=== PATIENT | female | born 1980 | race Caucasian/White ===

== ENCOUNTER → 2018-01-26 11:34 | Outpatient (CLI) | payer OTHER, SELFPAY | PROVIDERS: Visit Provider Physician Assistant | DX: N39.0 Urinary tract infection, site not specified (principal) | CPT/HCPCS: 87086 ==

== ENCOUNTER 2024-10-29 13:00 | Outpatient (RCR) | payer OTHER, SELFPAY ==
--- NOTE | 2023-09-10 14:18 | PT.OPPOC ---
Physical, Occupational & Speech Therapy At [facility] Current Diagnoses Mixed incontinence (09/10/23) Cystocele, unspecified (09/10/23) Rectocele (09/10/23) Pelvic muscle wasting (09/10/23) Pelvic and perineal pain (09/10/23) Visit Care Team Role Provider Type ARIK Vides Family Provider Non-Staff Primary Care Provider Specialty: Nursing Address: [address], [address], [place], [address] Email: ARIK Currie Attending Provider Non-Staff Referring Provider Specialty: Nursing Address: [facility], [address], [place], [address] Email: Plan Of Care PT-OP-T Assessment and Plan Start: 09/10/23 09:47 Freq: Status: Active Protocol: Document 09/10/23 09:48 [facility] (Rec: 09/10/23 10:35 [facility] [id number]) Physical Therapy Assessment Rehab Potential Rehabilitation Potential Excellent Evaluation Complexity Number of Personal Factors/Comorbidities 0 Number of Body Systems Impaired 1-2 Clinical Presentation at Evaluation Stable Impairments Impairments Activity Tolerance,Functional Activities,Soft Tissue Mobility,Strength,Tone Other Impairments urinary stress incontinence Goals 3 Impairment Urinary stress incontinence that is occurring 4-5 times per day and Paige always wears a pad for protection Embedded Software Design Engineer Goal (LTG) Paige reports a overall reduction in urinary leakage and is no longer having to wear a daily maxi pad LTG Duration 12 weeks 2 Impairment Decreased pelvic floor endurance Short Term Goal (STG) Paige is able to sustain a pelvic floor contraction x 10 seconds in supine STG Duration 5 weeks Embedded Software Design Engineer Goal (LTG) Paige is able to sustain a pelvic floor contraction in standing x 5 seconds LTG Duration 12 weeks 1 Impairment Weakness of the pelvic floor with MMT of 1/5 for anterior and left lateral kohler and 2/5 for posterior and right lateral wall Short Term Goal (STG) Paige is educated on a pelvic floor strengthening program STG Duration 4 weeks Care Home Goal (LTG) Paige has improved MMT for pelvic floor muscle strength by at least 1 muscle grade LTG Duration 12 weeks Assessment Summary Assessment Paige is a 42 year old female who presents to PT today with chief complaints of urinary stress incontinence with strong cough/sneeze, exercise/ running or with unexpected activity. She notes she can't wear just her underwear without a pad as she never knows when she will leak. Bladder habits include 3 plus coffee's per day. She reports not drinking very much water per day but maybe 2-3 glasses of water. Paige was educated today on bladder irritants and how they can increase urinary leakage. Paige has a history of a C- section delivery 13 years ago followed by a 11 years ago. She reports tearing into the perineum with her delivery . Paige describes symptoms of a yeast infection that she gets regularly and she also describes a rash under her C section scar. With exam of the pelvic floor Paige is very weak. She tests 1/5 MMT for the anterior and left pelvic wall and 2/5 MMT for the posterior and right lateral wall. Her rectum is very full with stool but due to decreased sensation she is not aware of this. She was educated in splinting at the perineum for bowel movements as well as using a squatty potty to promote fully emptying her bowels. She was educated on how a full descending colon and rectum and add to urinary leakage. With exam there is both a cystocele and rectocele present grade 2 in supine. Paige is a good candidate for pelvic floor therapy for strength and endurance training, bladder retraining, and overall core stability. Physical Therapy Plan Frequency and Duration Frequency of Treatment 1x/Week Duration of treatment (weeks) 12 Plan of Care Start Date 09/10/23 Plan of Care End Date 12/03/23 Therapeutic Interventions Therapeutic Interventions Home Exercise Program, Neuromuscular Re-education, Self-Care/Home Management, Therapeutic Exercises Modalities Biofeedback Next Visit Focus/Plan Next Note Type Treatment Note Next Visit Plan Begin EMG biofeedback for pelvic floor muscle training next visit. Check in with how Paige did with splinting at the perineum and review bladder irritants Plan of Care Dates Plan of Care Start Date 09/10/23 Plan of Care End Date 12/03/23 Electronically Signed by: Ekta Mckeon, PT 09/12/23 [id number] If you are in agreement with this Plan of Care, please return a signed and dated copy. I have reviewed this Plan of Care and certify that the skilled therapy services above are required to meet the patient?s needs. Physician Signature Date Printed Name and Credentials Clinical Instructor Signature Printed Name and Credentials
--- NOTE | 2023-09-10 14:18 | PT.OIE ---
Current Diagnoses Mixed incontinence (09/10/23) Cystocele, unspecified (09/10/23) Rectocele (09/10/23) Pelvic muscle wasting (09/10/23) Pelvic and perineal pain (09/10/23) Visit Care Team Role Provider Type ARIK Vides Family Provider Non-Staff Primary Care Provider Specialty: Nursing Address: [address], [address], [place], [address] Email: ARIK Currie Attending Provider Non-Staff Referring Provider Specialty: Nursing Address: [facility], [address], [place], [address] Email: Physical Therapy Initial Evaluation PT-OP-A Visit Information Start: 09/10/23 09:47 Freq: Status: Active Protocol: Document 09/10/23 09:45 [facility] (Rec: 09/10/23 17:18 [facility] [id number]) Out-Patient Physical Therapy Visit Information Visit Information Visit Type Initial Evaluation Visit Start Time 09:45 Visit Stop Time 10:30 Visit Number 1 Evaluation Information Evaluation Date 09/10/23 PT-OP-B Current Condition Start: 09/10/23 09:47 Freq: Status: Active Protocol: Document 09/10/23 09:48 [facility] (Rec: 09/10/23 10:35 [facility] [id number]) Current Condition History of Current Condition Onset Date 6-7 years ago Current Complaints urinary stress incontinence History of Current Condition kids are 13 and 11 and it started 6-7 years ago with losing urine with a strong sneeze, 2.5 years ago she did a little pelvic floor PT but it did not work for her. SHe has a C section and then a and she tore badly with her second baby. She does feel that she gets rashes under her scar. She does describe bad cramps and chronic yeast infections. She gets these every 3-4 months. 1 UTI 3 years ago. She has mild leakage here and there but with sneezing she will feel it just flow. She has to wear a pad all the time. She feels she voids all the way. SHe is waking up 1 xm per night void. SHe has a lot of coffee throughout the day. LImits water. She does have occasional fecal soiling but she was on a medication for PCOS was causing diarhea. Treatment Goals Patient/Caregiver Goals pt wants to see how much she can do with strengthening to avoid surgery. PT-OP-C Subjective Start: 09/10/23 09:47 Freq: Status: Active Protocol: Document 09/10/23 09:45 [facility] (Rec: 09/12/23 13:58 [facility] [id number]) Patient Questionnaires Pelvic Pain and Urgency/Frequency Patient Symptom Scale Pelvic Pain Score 4 PT-OP-I Pelvic Floor Start: 09/10/23 09:47 Freq: Status: Active Protocol: Document 09/10/23 09:45 [facility] (Rec: 09/10/23 17:20 [facility] [id number]) Pelvic Floor Assessment Urine Pelvic Floor Surgery No Other Urinary Symptoms urinary stress incontinence Leakage Size Large Leakage Cause Cough,Exercise,Lifting,Sneeze Leaks Per Day 5 Nocturia 1 Pads Used In 24 Hours 3 Urine Pad Type Maxi Pad Pelvic Clock Pelvic Clock 12-3 Atrophy Pelvic Clock 3-6 Atrophy Pelvic Clock 6-9 Atrophy Pelvic Clock 9-12 Atrophy Prolapse Cystocele Grade 2 Urethrocele Grade 2 Contraction Ability Voluntary Contraction Weak Voluntary Relaxation Weak Manual Muscle Testing Left 2 Manual Muscle Testing Right 2 Manual Muscle Testing Anterior 1 Manual Muscle Testing Posterior 2 Muscle Endurance (Seconds) 3 Comments Pelvic Floor Comments with exam Paige presents with a large amount of stool in her rectum. She is not aware of the stool and we talked about how this can press into her bladder increasing incontinence symptoms PT-OP-M Strength Start: 09/10/23 09:47 Freq: Status: Active Protocol: Document 09/10/23 09:45 [facility] (Rec: 09/12/23 13:59 [facility] [id number]) Trunk Strength Trunk Manual Muscle Testing Flexion 3 Fair Core Stabilization Decreased TA activation in supine PT-OP-Q Treatments Start: 09/10/23 09:47 Freq: Status: Active Protocol: Document 09/10/23 09:48 [facility] (Rec: 09/10/23 10:35 [facility] [id number]) Self-Care/Home Management Treatment Education Other Education pt educated on bladder irritants as pt drinks several cups of coffee per day, educated on splinting at the perineum and using a squatty potty to assist with fully emptying the bowels PT-OP-T Assessment and Plan Start: 09/10/23 09:47 Freq: Status: Active Protocol: Document 09/10/23 09:48 [facility] (Rec: 09/10/23 10:35 [facility] [id number]) Physical Therapy Assessment Rehab Potential Rehabilitation Potential Excellent Evaluation Complexity Number of Personal Factors/Comorbidities 0 Number of Body Systems Impaired 1-2 Clinical Presentation at Evaluation Stable Impairments Impairments Activity Tolerance,Functional Activities,Soft Tissue Mobility,Strength,Tone Other Impairments urinary stress incontinence Goals 3 Impairment Urinary stress incontinence that is occuring 4-5 times per day and Paige always wears a pad for protection Ict Account Manager Goal (LTG) Paige reports a overall reduction in urinary leakage and is no longer having to wear a daily maxi pad LTG Duration 12 weeks 2 Impairment Decreased pelvic floor endurance Short Term Goal (STG) Paige is able to sustain a pelvic floor contraction x 10 seconds in supine STG Duration 5 weeks Ict Account Manager Goal (LTG) Paige is able to sustain a pelvic floor contraction in standing x 5 seconds LTG Duration 12 weeks 1 Impairment Weakness of the pelvic floor with MMT of 1/5 for anterior and left lateral kohler and 2/5 for posterior and right lateral wall Short Term Goal (STG) Paige is educated on a pelvic floor strengthening program STG Duration 4 weeks Half-Way Goal (LTG) Paige has improved MMT for pelvic floor muscle strength by at least 1 muscle grade LTG Duration 12 weeks Assessment Summary Assessment Paige is a 42 year old female who presents to PT today with chief complaints of urinary stress incontinence with strong cough/sneeze, exercise/ running or with unexpected activity. She notes she can't wear just her underwear without a pad as she never knows when she will leak. Bladder habits include 3 plus coffee's per day. She reports not drinking very much water per day but maybe 2-3 glasses of water. Paige was educated today on bladder irritants and how they can increase urinary leakge. Paige has a history of a C- section delivery 13 years ago followed by a 11 years ago. She reports tearing into the perineum with her delivery . Paige describes symptoms of a yeast infection that she gets regularly and she also describes a rash under her C section scar. With exam of the pelvic floor Paige is very weak. She tests 1/5 MMT for the anterior and left pelvic wall and 2/5 MMT for the posterior and right lateral wall. Her rectum is very full with stool but due to decreased sensation she is not aware of this. She was educated in splinting at the perineum for bowel movements as well as using a squatty potty to promote fully emptying her bowels. She was educated on how a full descending colon and rectum and add to urinary leakage. With exam there is both a cystocele and rectocele present grade 2 in supine. Paige is a good candidate for pelvic floor therapy for strength and endurance training, bladder retraining, and overall core stability. Physical Therapy Plan Frequency and Duration Frequency of Treatment 1x/Week Duration of treatment (weeks) 12 Plan of Care Start Date 09/10/23 Plan of Care End Date 12/03/23 Therapeutic Interventions Therapeutic Interventions Home Exercise Program, Neuromuscular Re-education, Self-Care/Home Management, Therapeutic Exercises Modalities Biofeedback Next Visit Focus/Plan Next Note Type Treatment Note Next Visit Plan Begin EMG biofeedback for pelvic floor muscle training next visit. Check in with how Paige did with splinting at the perineum and review bladder irritants
--- NOTE | 2023-10-03 16:18 | PT.OTN ---
Current Diagnoses Mixed incontinence (10/03/23) Cystocele, unspecified (10/03/23) Rectocele (10/03/23) Pelvic muscle wasting (10/03/23) Pelvic and perineal pain (10/03/23) Physical Therapy Treatment Note PT-OP-A Visit Information Start: 09/10/23 09:47 Freq: Status: Active Protocol: Document 10/03/23 09:46 [facility] (Rec: 10/03/23 10:14 [facility] [id number]) Out-Patient Physical Therapy Visit Information Visit Information Visit Type Treatment Note Visit Start Time 09:45 Visit Stop Time 10:30 Visit Number 2 PT-OP-B Current Condition Start: 09/10/23 09:47 Freq: Status: Active Protocol: Document 09/10/23 09:48 [facility] (Rec: 09/10/23 10:35 [facility] [id number]) Current Condition History of Current Condition Onset Date 6-7 years ago Current Complaints urinary stress incontinence History of Current Condition kids are 13 and 11 and it started 6-7 years ago with losing urine with a strong sneeze, 2.5 years ago she did a little pelvic floor PT but it did not work for her. SHe has a C section and then a and she tore badly with her second baby. She does feel that she gets rashes under her scar. She does describe bad cramps and chronic yeast infections. She gets these every 3-4 months. 1 UTI 3 years ago. She has mild leakage here and there but with sneezing she will feel it just flow. She has to wear a pad all the time. She feels she voids all the way. SHe is waking up 1 xm per night void. SHe has a lot of coffee throughout the day. LImits water. She does have occasional fecal soiling but she was on a medication for PCOS was causing diarhea. Treatment Goals Patient/Caregiver Goals pt wants to see how much she can do with strengthening to avoid surgery. PT-OP-C Subjective Start: 09/10/23 09:47 Freq: Status: Active Protocol: Document 10/03/23 09:46 [facility] (Rec: 10/03/23 10:14 [facility] [id number]) OP-PT Subjective Patient Comments Patient Comments pt notes she has been trying to cut back on coffee but she is feeling pretty sleep deprived she has been using a stool to help with bowel movements. She does note that at times she has really hard stool. PT-OP-I Pelvic Floor Start: 09/10/23 09:47 Freq: Status: Active Protocol: Document 09/10/23 09:45 [facility] (Rec: 09/10/23 17:20 [facility] [id number]) Pelvic Floor Assessment Urine Pelvic Floor Surgery No Other Urinary Symptoms urinary stress incontinence Leakage Size Large Leakage Cause Cough,Exercise,Lifting,Sneeze Leaks Per Day 5 Nocturia 1 Pads Used In 24 Hours 3 Urine Pad Type Maxi Pad Pelvic Clock Pelvic Clock 12-3 Atrophy Pelvic Clock 3-6 Atrophy Pelvic Clock 6-9 Atrophy Pelvic Clock 9-12 Atrophy Prolapse Cystocele Grade 2 Urethrocele Grade 2 Contraction Ability Voluntary Contraction Weak Voluntary Relaxation Weak Manual Muscle Testing Left 2 Manual Muscle Testing Right 2 Manual Muscle Testing Anterior 1 Manual Muscle Testing Posterior 2 Muscle Endurance (Seconds) 3 Comments Pelvic Floor Comments with exam Paige presents with a large amount of stool in her rectum. She is not aware of the stool and we talked about how this can press into her bladder increasing incontinence symptoms PT-OP-M Strength Start: 09/10/23 09:47 Freq: Status: Active Protocol: Document 09/10/23 09:45 [facility] (Rec: 09/12/23 13:59 [facility] [id number]) Trunk Strength Trunk Manual Muscle Testing Flexion 3 Fair Core Stabilization Decreased TA activation in supine PT-OP-Q Treatments Start: 09/10/23 09:47 Freq: Status: Active Protocol: Document 10/03/23 09:46 [facility] (Rec: 10/03/23 10:14 [facility] [id number]) Self-Care/Home Management Treatment Education Other Education review of coffee intake and water intake, review of perineal splinting and importance of having a daily bowel movement PT-OP-T Assessment and Plan Start: 09/10/23 09:47 Freq: Status: Active Protocol: Document 10/03/23 16:16 [facility] (Rec: 10/03/23 16:17 [facility] [id number]) Physical Therapy Assessment Assessment Summary Assessment Paige was started today on NMES for the pelvic floor, she could only feel the right posterior wall but did well with initiating a pelvic floor contraction with the NMES. She does have EMG biofeedback for home and I encouraged her to use this Physical Therapy Plan Frequency and Duration Frequency of Treatment 1x/Week Duration of treatment (weeks) 12 Plan of Care Start Date 09/10/23 Plan of Care End Date 12/03/23 Therapeutic Interventions Therapeutic Interventions Home Exercise Program, Neuromuscular Re-education, Self-Care/Home Management, Therapeutic Exercises Modalities Biofeedback Next Visit Focus/Plan Next Note Type Treatment Note Next Visit Plan assess how Paige did with the NMES, continue NMES and progress pelvic floor and TA stabilization
--- NOTE | 2023-10-09 13:08 | PT.OTN ---
Current Diagnoses Mixed incontinence (10/09/23) Cystocele, unspecified (10/09/23) Rectocele (10/09/23) Pelvic muscle wasting (10/09/23) Pelvic and perineal pain (10/09/23) Physical Therapy Treatment Note PT-OP-A Visit Information Start: 09/10/23 09:47 Freq: Status: Active Protocol: Document 10/09/23 09:02 [facility] (Rec: 10/09/23 09:47 [facility] [id number]) Out-Patient Physical Therapy Visit Information Visit Information Visit Type Treatment Note Visit Start Time 09:02 Visit Stop Time 09:45 Visit Number 3 PT-OP-B Current Condition Start: 09/10/23 09:47 Freq: Status: Active Protocol: Document 09/10/23 09:48 [facility] (Rec: 09/10/23 10:35 [facility] [id number]) Current Condition History of Current Condition Onset Date 6-7 years ago Current Complaints urinary stress incontinence History of Current Condition kids are 13 and 11 and it started 6-7 years ago with losing urine with a strong sneeze, 2.5 years ago she did a little pelvic floor PT but it did not work for her. SHe has a C section and then a and she tore badly with her second baby. She does feel that she gets rashes under her scar. She does describe bad cramps and chronic yeast infections. She gets these every 3-4 months. 1 UTI 3 years ago. She has mild leakage here and there but with sneezing she will feel it just flow. She has to wear a pad all the time. She feels she voids all the way. SHe is waking up 1 xm per night void. SHe has a lot of coffee throughout the day. LImits water. She does have occasional fecal soiling but she was on a medication for PCOS was causing diarhea. Treatment Goals Patient/Caregiver Goals pt wants to see how much she can do with strengthening to avoid surgery. PT-OP-C Subjective Start: 09/10/23 09:47 Freq: Status: Active Protocol: Document 10/09/23 09:02 [facility] (Rec: 10/09/23 09:47 [facility] [id number]) OP-PT Subjective Patient Comments Patient Comments Paige notes she was trying the exercises more at home and she would do it whereever she was when she had the time. She PT-OP-I Pelvic Floor Start: 09/10/23 09:47 Freq: Status: Active Protocol: Document 09/10/23 09:45 [facility] (Rec: 09/10/23 17:20 [facility] [id number]) Pelvic Floor Assessment Urine Pelvic Floor Surgery No Other Urinary Symptoms urinary stress incontinence Leakage Size Large Leakage Cause Cough,Exercise,Lifting,Sneeze Leaks Per Day 5 Nocturia 1 Pads Used In 24 Hours 3 Urine Pad Type Maxi Pad Pelvic Clock Pelvic Clock 12-3 Atrophy Pelvic Clock 3-6 Atrophy Pelvic Clock 6-9 Atrophy Pelvic Clock 9-12 Atrophy Prolapse Cystocele Grade 2 Urethrocele Grade 2 Contraction Ability Voluntary Contraction Weak Voluntary Relaxation Weak Manual Muscle Testing Left 2 Manual Muscle Testing Right 2 Manual Muscle Testing Anterior 1 Manual Muscle Testing Posterior 2 Muscle Endurance (Seconds) 3 Comments Pelvic Floor Comments with exam Paige presents with a large amount of stool in her rectum. She is not aware of the stool and we talked about how this can press into her bladder increasing incontinence symptoms PT-OP-M Strength Start: 09/10/23 09:47 Freq: Status: Active Protocol: Document 09/10/23 09:45 [facility] (Rec: 09/12/23 13:59 [facility] [id number]) Trunk Strength Trunk Manual Muscle Testing Flexion 3 Fair Core Stabilization Decreased TA activation in supine PT-OP-Q Treatments Start: 09/10/23 09:47 Freq: Status: Active Protocol: Document 10/09/23 09:02 [facility] (Rec: 10/09/23 09:47 [facility] [id number]) Therapeutic Exercises Supine Exercises modified squat stretch Reps/Minutes hold 1-2 min pelvic floor long holds Reps/Minutes x 10 reps holding 10 sec and relaxing 10 sec supine ball squeeze with pelvic floor Side bilateral Reps/Minutes x 10 Other Exercises cat cow Reps/Minutes x 10 reps Neuro Re-Education Treatment Other Activities NMES for the pelvic floor Details with vaginal sensor Comments 15 min 10 sec on 10 sec off she was able to feel more in the upper pelvic floor PT-OP-T Assessment and Plan Start: 09/10/23 09:47 Freq: Status: Active Protocol: Document 10/09/23 09:02 [facility] (Rec: 10/09/23 09:47 [facility] [id number]) Physical Therapy Assessment Goals 3 Impairment Urinary stress incontinence that is occuring 4-5 times per day and Paige always wears a pad for protection Equal Opportunity Officer Goal (LTG) Paige reports a overall reduction in urinary leakage and is no longer having to wear a daily maxi pad LTG Duration 12 weeks 2 Impairment Decreased pelvic floor endurance Short Term Goal (STG) Paige is able to sustain a pelvic floor contraction x 10 seconds in supine STG Duration 5 weeks Equal Opportunity Officer Goal (LTG) Paige is able to sustain a pelvic floor contraction in standing x 5 seconds LTG Duration 12 weeks 1 Impairment Weakness of the pelvic floor with MMT of 1/5 for anterior and left lateral kohler and 2/5 for posterior and right lateral wall Short Term Goal (STG) Paige is educated on a pelvic floor strengthening program STG Duration 4 weeks Equal Opportunity Officer Goal (LTG) Paige has improved MMT for pelvic floor muscle strength by at least 1 muscle grade LTG Duration 12 weeks Assessment Summary Assessment Paige could feel the NMES at a lower level today at level 7 and she feels more sensation. continue working on improved pelvic floor awarness Physical Therapy Plan Frequency and Duration Frequency of Treatment 1x/Week Duration of treatment (weeks) 12 Plan of Care Start Date 09/10/23 Plan of Care End Date 12/03/23 Therapeutic Interventions Therapeutic Interventions Home Exercise Program, Neuromuscular Re-education, Self-Care/Home Management, Therapeutic Exercises Modalities Biofeedback Next Visit Focus/Plan Next Visit Plan continue with nmes and core strengthening
--- NOTE | 2023-11-28 14:30 | PT.OTN ---
Current Diagnoses Mixed incontinence (11/28/23) Cystocele, unspecified (11/28/23) Rectocele (11/28/23) Pelvic muscle wasting (11/28/23) Pelvic and perineal pain (11/28/23) Physical Therapy Treatment Note PT-OP-A Visit Information Start: 09/10/23 09:47 Freq: Status: Active Protocol: Document 11/28/23 14:30 [facility] (Rec: 11/28/23 16:15 [facility] [id number]) Out-Patient Physical Therapy Visit Information Visit Information Visit Type Progress Note Visit Start Time 14:30 Visit Stop Time 15:15 Visit Number 4 Evaluation Information Evaluation Date 09/10/23 PT-OP-B Current Condition Start: 09/10/23 09:47 Freq: Status: Active Protocol: Document 09/10/23 09:48 [facility] (Rec: 09/10/23 10:35 [facility] [id number]) Current Condition History of Current Condition Onset Date 6-7 years ago Current Complaints urinary stress incontinence History of Current Condition kids are 13 and 11 and it started 6-7 years ago with losing urine with a strong sneeze, 2.5 years ago she did a little pelvic floor PT but it did not work for her. SHe has a C section and then a and she tore badly with her second baby. She does feel that she gets rashes under her scar. She does describe bad cramps and chronic yeast infections. She gets these every 3-4 months. 1 UTI 3 years ago. She has mild leakage here and there but with sneezing she will feel it just flow. She has to wear a pad all the time. She feels she voids all the way. SHe is waking up 1 xm per night void. SHe has a lot of coffee throughout the day. LImits water. She does have occasional fecal soiling but she was on a medication for PCOS was causing diarhea. Treatment Goals Patient/Caregiver Goals pt wants to see how much she can do with strengthening to avoid surgery. PT-OP-C Subjective Start: 09/10/23 09:47 Freq: Status: Active Protocol: Document 11/28/23 14:30 [facility] (Rec: 11/28/23 15:18 [facility] [id number]) OP-PT Subjective Patient Comments Patient Comments Paige notes she has been dealing with her autistic child and has not had time for her exercises. She has recently had to admit her son into childrens inpatient. She would like to work on her exercises and feels like she needs to start over with her PT program Patient Reported Progress Same PT-OP-I Pelvic Floor Start: 09/10/23 09:47 Freq: Status: Active Protocol: Document 09/10/23 09:45 [facility] (Rec: 09/10/23 17:20 [facility] [id number]) Pelvic Floor Assessment Urine Pelvic Floor Surgery No Other Urinary Symptoms urinary stress incontinence Leakage Size Large Leakage Cause Cough,Exercise,Lifting,Sneeze Leaks Per Day 5 Nocturia 1 Pads Used In 24 Hours 3 Urine Pad Type Maxi Pad Pelvic Clock Pelvic Clock 12-3 Atrophy Pelvic Clock 3-6 Atrophy Pelvic Clock 6-9 Atrophy Pelvic Clock 9-12 Atrophy Prolapse Cystocele Grade 2 Urethrocele Grade 2 Contraction Ability Voluntary Contraction Weak Voluntary Relaxation Weak Manual Muscle Testing Left 2 Manual Muscle Testing Right 2 Manual Muscle Testing Anterior 1 Manual Muscle Testing Posterior 2 Muscle Endurance (Seconds) 3 Comments Pelvic Floor Comments with exam Paige presents with a large amount of stool in her rectum. She is not aware of the stool and we talked about how this can press into her bladder increasing incontinence symptoms PT-OP-M Strength Start: 09/10/23 09:47 Freq: Status: Active Protocol: Document 09/10/23 09:45 [facility] (Rec: 09/12/23 13:59 [facility] [id number]) Trunk Strength Trunk Manual Muscle Testing Flexion 3 Fair Core Stabilization Decreased TA activation in supine PT-OP-Q Treatments Start: 09/10/23 09:47 Freq: Status: Active Protocol: Document 11/28/23 14:30 [facility] (Rec: 11/28/23 15:18 [facility] [id number]) Therapeutic Exercises Supine Exercises modified squat stretch Reps/Minutes hold 1-2 min pelvic floor long holds Reps/Minutes x 10 reps holding 10 sec and relaxing 10 sec Comments 4.4 8.9 max supine ball squeeze with pelvic floor Reps/Minutes x 10 reps holding 5 seconds and resting 10 seconds Comments max 9.5 Self-Care/Home Management Treatment Education Patient Education Home Exercise Program Other Education HEP was reviewed and new handouts were given to Paige today for home PT-OP-T Assessment and Plan Start: 09/10/23 09:47 Freq: Status: Active Protocol: Document 11/28/23 14:30 [facility] (Rec: 11/28/23 15:18 [facility] [id number]) Physical Therapy Assessment Goals 3 Impairment Urinary stress incontinence that is occuring 4-5 times per day and Paige always wears a pad for protection Insole Lip Turner Goal (LTG) Paige reports a overall reduction in urinary leakage and is no longer having to wear a daily maxi pad LTG Duration 12 weeks 2 Impairment Decreased pelvic floor endurance Short Term Goal (STG) Paige is able to sustain a pelvic floor contraction x 10 seconds in supine STG Duration 5 weeks Alf Goal (LTG) Paige is able to sustain a pelvic floor contraction in standing x 5 seconds LTG Duration 12 weeks 1 Impairment Weakness of the pelvic floor with MMT of 1/5 for anterior and left lateral kohlre and 2/5 for posterior and right lateral wall Short Term Goal (STG) Paige is educated on a pelvic floor strengthening program STG Duration 4 weeks Alf Goal (LTG) Paige has improved MMT for pelvic floor muscle strength by at least 1 muscle grade LTG Duration 12 weeks Progress Towards Goals Progress Comments slow progress at this point due to hardships at home with her son Assessment Summary Assessment Paige has been seen x 4 visits in PT for pelvic floor strengthening due to c/o urinary stress incontinence. This has been a difficulty time for her as she has a autistic son who she has had to put into inpatient care. Paige has not been able to focus on her home program. She feels she is ready now to work on her exercises so she would like to extend her plan of care. There has not been much change at this point with her symptoms but she is recruiting pelvic floor muscles more now and does show some improvements with pelvic floor endurance. I will extend her plan of care for her to be able to continue PT and working towards the above stated goals. Physical Therapy Plan Frequency and Duration Frequency of Treatment 1x/Week Duration of treatment (weeks) 12 Plan of Care Start Date 11/28/23 Plan of Care End Date 02/27/24 Therapeutic Interventions Therapeutic Interventions Home Exercise Program, Neuromuscular Re-education, Self-Care/Home Management, Therapeutic Exercises Modalities Biofeedback Next Visit Focus/Plan Next Note Type Treatment Note Next Visit Plan EMG biofeedback for pelvic floor strengthening, NMES for improving sensation of pelvic floor contractions, core strengthening
--- NOTE | 2023-11-28 14:30 | PT.OPPOC ---
Physical, Occupational & Speech Therapy At [facility] Current Diagnoses Mixed incontinence (11/28/23) Cystocele, unspecified (11/28/23) Rectocele (11/28/23) Pelvic muscle wasting (11/28/23) Pelvic and perineal pain (11/28/23) Visit Care Team Role Provider Type ARIK Vides Family Provider Non-Staff Primary Care Provider Specialty: Nursing Address: [address], [address], [place], [address] Email: ARIK Currie Attending Provider Non-Staff Referring Provider Specialty: Nursing Address: [facility], [address], [place], [address] Email: Plan Of Care PT-OP-T Assessment and Plan Start: 09/10/23 09:47 Freq: Status: Active Protocol: Document 11/28/23 14:30 [facility] (Rec: 11/28/23 15:18 [facility] [id number]) Physical Therapy Assessment Goals 3 Impairment Urinary stress incontinence that is occurring 4-5 times per day and Paige always wears a pad for protection Enrichment Specialist Goal (LTG) Paige reports a overall reduction in urinary leakage and is no longer having to wear a daily maxi pad LTG Duration 12 weeks 2 Impairment Decreased pelvic floor endurance Short Term Goal (STG) Paige is able to sustain a pelvic floor contraction x 10 seconds in supine STG Duration 5 weeks Residential Goal (LTG) Paige is able to sustain a pelvic floor contraction in standing x 5 seconds LTG Duration 12 weeks 1 Impairment Weakness of the pelvic floor with MMT of 1/5 for anterior and left lateral kohler and 2/5 for posterior and right lateral wall Short Term Goal (STG) Paige is educated on a pelvic floor strengthening program STG Duration 4 weeks Enrichment Specialist Goal (LTG) Paige has improved MMT for pelvic floor muscle strength by at least 1 muscle grade LTG Duration 12 weeks Progress Towards Goals Progress Comments slow progress at this point due to hardships at home with her son Assessment Summary Assessment Paige has been seen x 4 visits in PT for pelvic floor strengthening due to c/o urinary stress incontinence. This has been a difficulty time for her as she has a autistic son who she has had to put into inpatient care. Paige has not been able to focus on her home program. She feels she is ready now to work on her exercises so she would like to extend her plan of care. There has not been much change at this point with her symptoms but she is recruiting pelvic floor muscles more now and does show some improvements with pelvic floor endurance. I will extend her plan of care for her to be able to continue PT and working towards the above stated goals. Physical Therapy Plan Frequency and Duration Frequency of Treatment 1x/Week Duration of treatment (weeks) 12 Plan of Care Start Date 11/28/23 Plan of Care End Date 02/27/24 Therapeutic Interventions Therapeutic Interventions Home Exercise Program, Neuromuscular Re-education, Self-Care/Home Management, Therapeutic Exercises Modalities Biofeedback Next Visit Focus/Plan Next Note Type Treatment Note Next Visit Plan EMG biofeedback for pelvic floor strengthening, NMES for improving sensation of pelvic floor contractions, core strengthening Plan of Care Plan of Care Start Date 11/28/23 Plan of Care End Date 02/27/24 Electronically Signed by: Ekta Mckeon, PT 12/04/23 1014 If you are in agreement with this Plan of Care, please return a signed and dated copy. I have reviewed this Plan of Care and certify that the skilled therapy services above are required to meet the patient?s needs. Physician Signature Date Printed Name and Credentials Clinical Instructor Signature Printed Name and Credentials
--- NOTE | 2024-03-10 17:01 | PT.OTN ---
Current Diagnoses Mixed incontinence (03/10/24) Cystocele, unspecified (03/10/24) Rectocele (03/10/24) Pelvic muscle wasting (03/10/24) Pelvic and perineal pain (03/10/24) Physical Therapy Treatment Note PT-OP-A Visit Information Start: 09/10/23 09:47 Freq: Status: Active Protocol: Document 03/10/24 09:05 [facility] (Rec: 03/10/24 09:50 [facility] [id number]) Out-Patient Physical Therapy Visit Information Visit Information Visit Type Treatment Note Visit Start Time 09:00 Visit Stop Time 09:45 Visit Number 5 PT-OP-B Current Condition Start: 09/10/23 09:47 Freq: Status: Active Protocol: Document 09/10/23 09:48 [facility] (Rec: 09/10/23 10:35 [facility] [id number]) Current Condition History of Current Condition Onset Date 6-7 years ago Current Complaints urinary stress incontinence History of Current Condition kids are 13 and 11 and it started 6-7 years ago with losing urine with a strong sneeze, 2.5 years ago she did a little pelvic floor PT but it did not work for her. SHe has a C section and then a and she tore badly with her second baby. She does feel that she gets rashes under her scar. She does describe bad cramps and chronic yeast infections. She gets these every 3-4 months. 1 UTI 3 years ago. She has mild leakage here and there but with sneezing she will feel it just flow. She has to wear a pad all the time. She feels she voids all the way. SHe is waking up 1 xm per night void. SHe has a lot of coffee throughout the day. LImits water. She does have occasional fecal soiling but she was on a medication for PCOS was causing diarhea. Treatment Goals Patient/Caregiver Goals pt wants to see how much she can do with strengthening to avoid surgery. PT-OP-C Subjective Start: 09/10/23 09:47 Freq: Status: Active Protocol: Document 03/10/24 09:00 [facility] (Rec: 03/10/24 16:47 [facility] [id number]) OP-PT Subjective Patient Comments Patient Comments Paige reports she hasn't been doing her exercises as much as she has been out of the routine and it has been hard having so much time between visits. She does report that this summer her coffee was iced so it was diluted and that she noticied decreased leakage. Things are a bit better PT-OP-I Pelvic Floor Start: 09/10/23 09:47 Freq: Status: Active Protocol: Document 09/10/23 09:45 [facility] (Rec: 09/10/23 17:20 [facility] [id number]) Pelvic Floor Assessment Urine Pelvic Floor Surgery No Other Urinary Symptoms urinary stress incontinence Leakage Size Large Leakage Cause Cough,Exercise,Lifting,Sneeze Leaks Per Day 5 Nocturia 1 Pads Used In 24 Hours 3 Urine Pad Type Maxi Pad Pelvic Clock Pelvic Clock 12-3 Atrophy Pelvic Clock 3-6 Atrophy Pelvic Clock 6-9 Atrophy Pelvic Clock 9-12 Atrophy Prolapse Cystocele Grade 2 Urethrocele Grade 2 Contraction Ability Voluntary Contraction Weak Voluntary Relaxation Weak Manual Muscle Testing Left 2 Manual Muscle Testing Right 2 Manual Muscle Testing Anterior 1 Manual Muscle Testing Posterior 2 Muscle Endurance (Seconds) 3 Comments Pelvic Floor Comments with exam Paige presents with a large amount of stool in her rectum. She is not aware of the stool and we talked about how this can press into her bladder increasing incontinence symptoms PT-OP-M Strength Start: 09/10/23 09:47 Freq: Status: Active Protocol: Document 09/10/23 09:45 [facility] (Rec: 09/12/23 13:59 [facility] [id number]) Trunk Strength Trunk Manual Muscle Testing Flexion 3 Fair Core Stabilization Decreased TA activation in supine PT-OP-Q Treatments Start: 09/10/23 09:47 Freq: Status: Active Protocol: Document 03/10/24 09:05 [facility] (Rec: 03/10/24 09:50 [facility] [id number]) Therapeutic Exercises Supine Exercises pelvic floor long holds Reps/Minutes x 10 reps holding 10 sec and relaxing 10 sec Comments 3.3 and 14.9 supine ball squeeze with pelvic floor Reps/Minutes x 10 reps holding 5 seconds and resting 10 seconds Comments max 12.5 Sitting Exercises seated hip abduction Reps/Minutes 3 x 10 reps sit to stand withpelvic floor engagement Reps/Minutes pelvic floor with sit-stand Standing Exercises standing squats with pelvic floor engagement Reps/Minutes x 10 reps Other Exercises dynamic hamstring flossing Reps/Minutes x 20 reps PT-OP-T Assessment and Plan Start: 09/10/23 09:47 Freq: Status: Active Protocol: Document 03/10/24 09:05 [facility] (Rec: 03/10/24 09:50 [facility] [id number]) Physical Therapy Assessment Goals 3 Impairment Urinary stress incontinence that is occuring 4-5 times per day and Paige always wears a pad for protection Corporate Strategist Goal (LTG) Paige reports a overall reduction in urinary leakage and is no longer having to wear a daily maxi pad pt is still wearing a maxi pad , she did drink less coffee all summer and felt that her leakage was less LTG Duration 12 weeks 2 Impairment Decreased pelvic floor endurance Short Term Goal (STG) Paige is able to sustain a pelvic floor contraction x 10 seconds in supine This is still very difficult for Paige to sustain and as of today 03/10/24 she was only able to hold a few seconds STG Duration 5 weeks Mcc Goal (LTG) Paige is able to sustain a pelvic floor contraction in standing x 5 seconds goal not yet met LTG Duration 12 weeks 1 Impairment Weakness of the pelvic floor with MMT of 1/5 for anterior and left lateral kohler and 2/5 for posterior and right lateral wall Short Term Goal (STG) Paige is educated on a pelvic floor strengthening program Paige has been educated on a home pelvic floor strengtheing program STG Duration 4 weeks Corporate Strategist Goal (LTG) Paige has improved MMT for pelvic floor muscle strength by at least 1 muscle grade goal not yet me LTG Duration 12 weeks Assessment Summary Assessment Today was Paige's 5th PT visit and she has not been seen since November 27. She reports she has not been able to do as many of the exercises as she would like to. She did decrease her coffee consumption this summer by drinking iced coffee and notes a decrease in her leakage. She now has her son in impatient care and she feels she is getting increased sleep . Things are slightly better. Paige would benefit from continue PT as she has only been seen for 1 visit since her last Progress report Physical Therapy Plan Frequency and Duration Frequency of Treatment 1x/Week Duration of treatment (weeks) 12 Plan of Care Start Date 03/10/24 Plan of Care End Date 06/02/24 Therapeutic Interventions Therapeutic Interventions Home Exercise Program, Neuromuscular Re-education, Self-Care/Home Management, Therapeutic Exercises Modalities Biofeedback Next Visit Focus/Plan Next Note Type Treatment Note Next Visit Plan EMG biofeedback for pelvic floor strengthening, NMES for improving sensation of pelvic floor contractions, core strengthening work on sit-stand and standing squats
--- NOTE | 2024-03-10 17:02 | PT.OPPOC ---
Physical, Occupational & Speech Therapy At [facility] Current Diagnoses Mixed incontinence (03/10/24) Cystocele, unspecified (03/10/24) Rectocele (03/10/24) Pelvic muscle wasting (03/10/24) Pelvic and perineal pain (03/10/24) Visit Care Team Role Provider Type ARIK Vidse Family Provider Non-Staff Primary Care Provider Specialty: Nursing Address: [address], [address], [place], [address] Email: ARIK Currie Attending Provider Non-Staff Referring Provider Specialty: Nursing Address: [facility], [address], [place], [address] Email: Plan Of Care PT-OP-B Current Condition Start: 09/10/23 09:47 Freq: Status: Active Protocol: Document 09/10/23 09:48 [facility] (Rec: 09/10/23 10:35 [facility] [id number]) Current Condition History of Current Condition Onset Date 6-7 years ago Current Complaints urinary stress incontinence History of Current Condition kids are 13 and 11 and it started 6-7 years ago with losing urine with a strong sneeze, 2.5 years ago she did a little pelvic floor PT but it did not work for her. SHe has a C section and then a and she tore badly with her second baby. She does feel that she gets rashes under her scar. She does describe bad cramps and chronic yeast infections. She gets these every 3-4 months. 1 UTI 3 years ago. She has mild leakage here and there but with sneezing she will feel it just flow. She has to wear a pad all the time. She feels she voids all the way. SHe is waking up 1 xm per night void. SHe has a lot of coffee throughout the day. LImits water. She does have occasional fecal soiling but she was on a medication for PCOS was causing diarhea. Treatment Goals Patient/Caregiver Goals pt wants to see how much she can do with strengthening to avoid surgery. PT-OP-T Assessment and Plan Start: 09/10/23 09:47 Freq: Status: Active Protocol: Document 03/10/24 09:05 [facility] (Rec: 03/10/24 09:50 [facility] [id number]) Physical Therapy Assessment Goals 3 Impairment Urinary stress incontinence that is occuring 4-5 times per day and Paige always wears a pad for protection Welder Boilermaker Goal (LTG) Paige reports a overall reduction in urinary leakage and is no longer having to wear a daily maxi pad pt is still wearing a maxi pad , she did drink less coffee all summer and felt that her leakage was less LTG Duration 12 weeks 2 Impairment Decreased pelvic floor endurance Short Term Goal (STG) Paige is able to sustain a pelvic floor contraction x 10 seconds in supine This is still very difficult for Paige to sustain and as of today 03/10/24 she was only able to hold a few seconds STG Duration 5 weeks Long-Term Goal (LTG) Paige is able to sustain a pelvic floor contraction in standing x 5 seconds goal not yet met LTG Duration 12 weeks 1 Impairment Weakness of the pelvic floor with MMT of 1/5 for anterior and left lateral kohler and 2/5 for posterior and right lateral wall Short Term Goal (STG) Paige is educated on a pelvic floor strengthening program Paige has been educated on a home pelvic floor strengtheing program STG Duration 4 weeks Long-Term Goal (LTG) Paige has improved MMT for pelvic floor muscle strength by at least 1 muscle grade goal not yet me LTG Duration 12 weeks Assessment Summary Assessment Today was Paige's 5th PT visit and she has not been seen since November 27. She reports she has not been able to do as many of the exercises as she would like to. She did decrease her coffee consumption this summer by drinking iced coffee and notes a decrease in her leakage. She now has her son in impatient care and she feels she is getting increased sleep . Things are slightly better. Paige would benefit from continue PT as she has only been seen for 1 visit since her last Progress report Physical Therapy Plan Frequency and Duration Frequency of Treatment 1x/Week Duration of treatment (weeks) 12 Plan of Care Start Date 03/10/24 Plan of Care End Date 06/02/24 Therapeutic Interventions Therapeutic Interventions Home Exercise Program, Neuromuscular Re-education, Self-Care/Home Management, Therapeutic Exercises Modalities Biofeedback Next Visit Focus/Plan Next Note Type Treatment Note Next Visit Plan EMG biofeedback for pelvic floor strengthening, NMES for improving sensation of pelvic floor contractions, core strengthening work on sit-stand and standing squats Plan of Care Dates Plan of Care Start Date 03/10/24 Plan of Care End Date 06/02/24 Electronically Signed by: Ekta Mckeon, PT 03/10/24 1068 If you are in agreement with this Plan of Care, please return a signed and dated copy. I have reviewed this Plan of Care and certify that the skilled therapy services above are required to meet the patient?s needs. Physician Signature Date Printed Name and Credentials Clinical Instructor Signature Printed Name and Credentials
--- NOTE | 2024-03-25 09:45 | PT.OTN ---
Current Diagnoses Mixed incontinence (03/25/24) Cystocele, unspecified (03/25/24) Rectocele (03/25/24) Pelvic muscle wasting (03/25/24) Pelvic and perineal pain (03/25/24) Physical Therapy Treatment Note PT-OP-A Visit Information Start: 09/10/23 09:47 Freq: Status: Active Protocol: Document 03/25/24 09:07 [facility] (Rec: 03/25/24 09:45 [facility] [id number]) Out-Patient Physical Therapy Visit Information Visit Information Visit Type Treatment Note Visit Start Time 09:07 Visit Stop Time 09:45 Visit Number 6 PT-OP-B Current Condition Start: 09/10/23 09:47 Freq: Status: Active Protocol: Document 09/10/23 09:48 [facility] (Rec: 09/10/23 10:35 [facility] [id number]) Current Condition History of Current Condition Onset Date 6-7 years ago Current Complaints urinary stress incontinence History of Current Condition kids are 13 and 11 and it started 6-7 years ago with losing urine with a strong sneeze, 2.5 years ago she did a little pelvic floor PT but it did not work for her. SHe has a C section and then a and she tore badly with her second baby. She does feel that she gets rashes under her scar. She does describe bad cramps and chronic yeast infections. She gets these every 3-4 months. 1 UTI 3 years ago. She has mild leakage here and there but with sneezing she will feel it just flow. She has to wear a pad all the time. She feels she voids all the way. SHe is waking up 1 xm per night void. SHe has a lot of coffee throughout the day. LImits water. She does have occasional fecal soiling but she was on a medication for PCOS was causing diarhea. Treatment Goals Patient/Caregiver Goals pt wants to see how much she can do with strengthening to avoid surgery. PT-OP-C Subjective Start: 09/10/23 09:47 Freq: Status: Active Protocol: Document 03/25/24 09:07 [facility] (Rec: 03/25/24 09:45 [facility] [id number]) OP-PT Subjective Patient Comments Patient Comments sitting to squatting went well PT-OP-I Pelvic Floor Start: 09/10/23 09:47 Freq: Status: Active Protocol: Document 09/10/23 09:45 [facility] (Rec: 09/10/23 17:20 [facility] [id number]) Pelvic Floor Assessment Urine Pelvic Floor Surgery No Other Urinary Symptoms urinary stress incontinence Leakage Size Large Leakage Cause Cough,Exercise,Lifting,Sneeze Leaks Per Day 5 Nocturia 1 Pads Used In 24 Hours 3 Urine Pad Type Maxi Pad Pelvic Clock Pelvic Clock 12-3 Atrophy Pelvic Clock 3-6 Atrophy Pelvic Clock 6-9 Atrophy Pelvic Clock 9-12 Atrophy Prolapse Cystocele Grade 2 Urethrocele Grade 2 Contraction Ability Voluntary Contraction Weak Voluntary Relaxation Weak Manual Muscle Testing Left 2 Manual Muscle Testing Right 2 Manual Muscle Testing Anterior 1 Manual Muscle Testing Posterior 2 Muscle Endurance (Seconds) 3 Comments Pelvic Floor Comments with exam Paige presents with a large amount of stool in her rectum. She is not aware of the stool and we talked about how this can press into her bladder increasing incontinence symptoms PT-OP-M Strength Start: 09/10/23 09:47 Freq: Status: Active Protocol: Document 09/10/23 09:45 [facility] (Rec: 09/12/23 13:59 [facility] [id number]) Trunk Strength Trunk Manual Muscle Testing Flexion 3 Fair Core Stabilization Decreased TA activation in supine PT-OP-Q Treatments Start: 09/10/23 09:47 Freq: Status: Active Protocol: Document 03/25/24 09:07 [facility] (Rec: 03/25/24 09:45 [facility] [id number]) Therapeutic Exercises Supine Exercises pelvic floor long holds Reps/Minutes x 10 reps holding 10 sec and relaxing 10 sec Comments 6 uv average 9.7 supine ball squeeze with pelvic floor Comments 5.9 and 9.1 max Sitting Exercises sit to stand withpelvic floor engagement Reps/Minutes pelvic floor with sit-stand Other Exercises cat cow Reps/Minutes x 10 reps PT-OP-T Assessment and Plan Start: 09/10/23 09:47 Freq: Status: Active Protocol: Document 03/25/24 09:07 [facility] (Rec: 03/25/24 09:45 [facility] [id number]) Physical Therapy Assessment Assessment Summary Assessment improved recruitment today of pelvic floor, average was the highest it has been Physical Therapy Plan Frequency and Duration Frequency of Treatment 1x/Week Duration of treatment (weeks) 12 Plan of Care Start Date 03/10/24 Plan of Care End Date 12/10/24 Therapeutic Interventions Therapeutic Interventions Home Exercise Program, Neuromuscular Re-education, Self-Care/Home Management, Therapeutic Exercises Modalities Biofeedback Next Visit Focus/Plan Next Note Type Treatment Note Next Visit Plan EMG biofeedback for pelvic floor strengthening, NMES for improving sensation of pelvic floor contractions, core strengthening work on sit-stand and standing squats
--- NOTE | 2024-05-12 16:40 | PT.OTN ---
Current Diagnoses Mixed incontinence (05/12/24) Cystocele, unspecified (05/12/24) Rectocele (05/12/24) Pelvic muscle wasting (05/12/24) Pelvic and perineal pain (05/12/24) Physical Therapy Treatment Note PT-OP-A Visit Information Start: 09/10/23 09:47 Freq: Status: Active Protocol: Document 05/12/24 08:17 [facility] (Rec: 05/12/24 09:00 [facility] [id number]) Out-Patient Physical Therapy Visit Information Visit Information Visit Type Progress Note Visit Start Time 08:15 Visit Stop Time 09:00 Visit Number 7 PT-OP-B Current Condition Start: 09/10/23 09:47 Freq: Status: Active Protocol: Document 09/10/23 09:48 [facility] (Rec: 09/10/23 10:35 [facility] [id number]) Current Condition History of Current Condition Onset Date 6-7 years ago Current Complaints urinary stress incontinence History of Current Condition kids are 13 and 11 and it started 6-7 years ago with losing urine with a strong sneeze, 2.5 years ago she did a little pelvic floor PT but it did not work for her. SHe has a C section and then a and she tore badly with her second baby. She does feel that she gets rashes under her scar. She does describe bad cramps and chronic yeast infections. She gets these every 3-4 months. 1 UTI 3 years ago. She has mild leakage here and there but with sneezing she will feel it just flow. She has to wear a pad all the time. She feels she voids all the way. SHe is waking up 1 xm per night void. SHe has a lot of coffee throughout the day. LImits water. She does have occasional fecal soiling but she was on a medication for PCOS was causing diarhea. Treatment Goals Patient/Caregiver Goals pt wants to see how much she can do with strengthening to avoid surgery. PT-OP-C Subjective Start: 09/10/23 09:47 Freq: Status: Active Protocol: Document 05/12/24 08:17 [facility] (Rec: 05/12/24 09:00 [facility] [id number]) OP-PT Subjective Patient Comments Patient Comments Paige feels like things are subsiding quite a bit and she feels as if she is getting stronger with her pelvci floor . She has generally cut out the end of the day coffee and can tell that this makes a difference for her. She still has some episdoes of leakage however it is not as severe as it was. She would like to continued PT PT-OP-I Pelvic Floor Start: 09/10/23 09:47 Freq: Status: Active Protocol: Document 09/10/23 09:45 [facility] (Rec: 09/10/23 17:20 [facility] [id number]) Pelvic Floor Assessment Urine Pelvic Floor Surgery No Other Urinary Symptoms urinary stress incontinence Leakage Size Large Leakage Cause Cough,Exercise,Lifting,Sneeze Leaks Per Day 5 Nocturia 1 Pads Used In 24 Hours 3 Urine Pad Type Maxi Pad Pelvic Clock Pelvic Clock 12-3 Atrophy Pelvic Clock 3-6 Atrophy Pelvic Clock 6-9 Atrophy Pelvic Clock 9-12 Atrophy Prolapse Cystocele Grade 2 Urethrocele Grade 2 Contraction Ability Voluntary Contraction Weak Voluntary Relaxation Weak Manual Muscle Testing Left 2 Manual Muscle Testing Right 2 Manual Muscle Testing Anterior 1 Manual Muscle Testing Posterior 2 Muscle Endurance (Seconds) 3 Comments Pelvic Floor Comments with exam Paige presents with a large amount of stool in her rectum. She is not aware of the stool and we talked about how this can press into her bladder increasing incontinence symptoms PT-OP-M Strength Start: 09/10/23 09:47 Freq: Status: Active Protocol: Document 09/10/23 09:45 [facility] (Rec: 09/12/23 13:59 [facility] [id number]) Trunk Strength Trunk Manual Muscle Testing Flexion 3 Fair Core Stabilization Decreased TA activation in supine PT-OP-Q Treatments Start: 09/10/23 09:47 Freq: Status: Active Protocol: Document 05/12/24 08:17 [facility] (Rec: 05/12/24 09:00 [facility] [id number]) Therapeutic Exercises Supine Exercises hip abduction Reps/Minutes x 20 rep with level 2 th quick contractions Reps/Minutes 10 reps pelvic floor long holds Supine Exercise Name baselineat rest is 0 Reps/Minutes x 10 reps holding 10 sec and relaxing 10 sec Comments 4.7 and max of 12.6 supine ball squeeze with pelvic floor Reps/Minutes x 10 reps holding 5 seconds and resting 10 seconds Comments 7.2 and 18.3 uv max Sitting Exercises sit to stand withpelvic floor engagement Reps/Minutes pelvic floor with sit-stand Other Exercises dynamic hamstring flossing Reps/Minutes x 20 reps cat cow Reps/Minutes x 10 reps PT-OP-T Assessment and Plan Start: 09/10/23 09:47 Freq: Status: Active Protocol: Document 05/12/24 08:17 [facility] (Rec: 05/12/24 09:00 [facility] [id number]) Physical Therapy Assessment Rehab Potential Rehabilitation Potential Excellent Evaluation Complexity Number of Personal Factors/Comorbidities 0 Number of Body Systems Impaired 1-2 Clinical Presentation at Evaluation Stable Impairments Impairments Activity Tolerance,Functional Activities,Soft Tissue Mobility,Strength,Tone Other Impairments urinary stress incontinence Goals 3 Impairment Urinary stress incontinence that is occuring 4-5 times per day and Paige always wears a pad for protection Computer Support Specialist Goal (LTG) Paige reports a overall reduction in urinary leakage and is no longer having to wear a daily maxi pad pt is still wearing a maxi pad just in case however is not noting the same degree of leakage she was experiencing, she has reduced her coffee intake which is also helping to reduce leakage LTG Duration 12 weeks 2 Impairment Decreased pelvic floor endurance Short Term Goal (STG) Paige is able to sustain a pelvic floor contraction x 10 seconds in supine Endurance holds have been improving and Paige is now able to hold x 10 seconds in supine STG Duration 5 weeks Computer Support Specialist Goal (LTG) Paige is able to sustain a pelvic floor contraction in standing x 5 seconds goal not yet met LTG Duration 12 weeks 1 Impairment Weakness of the pelvic floor with MMT of 1/5 for anterior and left lateral kohler and 2/5 for posterior and right lateral wall Short Term Goal (STG) Paige is educated on a pelvic floor strengthening program Paige has been educated on a home pelvic floor strengthening program STG Duration 4 weeks Computer Support Specialist Goal (LTG) Paige has improved MMT for pelvic floor muscle strength by at least 1 muscle grade good progress LTG Duration 12 weeks Progress Towards Goals Progress Comments slow progress at this point due to hardships at home with her son Assessment Summary Assessment Paige has been seen x 7 visits in PT and is showing progress with decreased complaints of pelvic pressure and decreased c/o leakage. She demonstrated improved recruitment today of pelvic floor and on EMG biofeedback the average was the highest it has been. Paige is now able to sustain a pelvic floor contraction in supine x 10 seconds. She would benefit from continued PT working towards upright positioning and dynamic stabilization Physical Therapy Plan Frequency and Duration Frequency of Treatment 1 xm per week Duration of treatment (weeks) 12 Plan of Care Start Date 05/12/24 Plan of Care End Date 07/28/24 Therapeutic Interventions Therapeutic Interventions Home Exercise Program, Neuromuscular Re-education, Self-Care/Home Management, Therapeutic Exercises Modalities Biofeedback Next Visit Focus/Plan Next Note Type Treatment Note Next Visit Plan EMG biofeedback for pelvic floor strengthening, NMES for improving sensation of pelvic floor contractions, core strengthening work on sit-stand and standing squats
--- NOTE | 2024-05-12 16:40 | PT.OPPOC ---
Physical, Occupational & Speech Therapy At [facility] Current Diagnoses Mixed incontinence (05/12/24) Cystocele, unspecified (05/12/24) Rectocele (05/12/24) Pelvic muscle wasting (05/12/24) Pelvic and perineal pain (05/12/24) Visit Care Team Role Provider Type ARIK Vides Family Provider Non-Staff Primary Care Provider Specialty: Nursing Address: [address], [address], [place], [address] Email: ARIK Currie Attending Provider Non-Staff Referring Provider Specialty: Nursing Address: [facility], [address], [place], [address] Email: Plan Of Care PT-OP-B Current Condition Start: 09/10/23 09:47 Freq: Status: Active Protocol: Document 09/10/23 09:48 [facility] (Rec: 09/10/23 10:35 [facility] [id number]) Current Condition History of Current Condition Onset Date 6-7 years ago Current Complaints urinary stress incontinence History of Current Condition kids are 13 and 11 and it started 6-7 years ago with losing urine with a strong sneeze, 2.5 years ago she did a little pelvic floor PT but it did not work for her. She has a C section and then a and she tore badly with her second baby. She does feel that she gets rashes under her scar. She does describe bad cramps and chronic yeast infections. She gets these every 3-4 months. 1 UTI 3 years ago. She has mild leakage here and there but with sneezing she will feel it just flow. She has to wear a pad all the time. She feels she voids all the way. SHe is waking up 1 xm per night void. SHe has a lot of coffee throughout the day. LImits water. She does have occasional fecal soiling but she was on a medication for PCOS was causing diarhea. Treatment Goals Patient/Caregiver Goals pt wants to see how much she can do with strengthening to avoid surgery. PT-OP-T Assessment and Plan Start: 09/10/23 09:47 Freq: Status: Active Protocol: Document 05/12/24 08:17 [facility] (Rec: 05/12/24 09:00 [facility] [id number]) Physical Therapy Assessment Rehab Potential Rehabilitation Potential Excellent Evaluation Complexity Number of Personal Factors/Comorbidities 0 Number of Body Systems Impaired 1-2 Clinical Presentation at Evaluation Stable Impairments Impairments Activity Tolerance,Functional Activities,Soft Tissue Mobility,Strength,Tone Other Impairments urinary stress incontinence Goals 3 Impairment Urinary stress incontinence that is occurring 4-5 times per day and Paige always wears a pad for protection Correction Goal (LTG) Paige reports a overall reduction in urinary leakage and is no longer having to wear a daily maxi pad pt is still wearing a maxi pad just in case however is not noting the same degree of leakage she was experiencing, she has reduced her coffee intake which is also helping to reduce leakage LTG Duration 12 weeks 2 Impairment Decreased pelvic floor endurance Short Term Goal (STG) Paige is able to sustain a pelvic floor contraction x 10 seconds in supine Endurance holds have been improving and Paige is now able to hold x 10 seconds in supine STG Duration 5 weeks Correction Goal (LTG) Paige is able to sustain a pelvic floor contraction in standing x 5 seconds goal not yet met LTG Duration 12 weeks 1 Impairment Weakness of the pelvic floor with MMT of 1/5 for anterior and left lateral kohler and 2/5 for posterior and right lateral wall Short Term Goal (STG) Paige is educated on a pelvic floor strengthening program Paige has been educated on a home pelvic floor strengthening program STG Duration 4 weeks Correction Goal (LTG) Paige has improved MMT for pelvic floor muscle strength by at least 1 muscle grade good progress LTG Duration 12 weeks Progress Towards Goals Progress Comments slow progress at this point due to hardships at home with her son Assessment Summary Assessment Paige has been seen x 7 visits in PT and is showing progress with decreased complaints of pelvic pressure and decreased c/o leakage. She demonstrated improved recruitment today of pelvic floor and on EMG biofeedback the average was the highest it has been. Paige is now able to sustain a pelvic floor contraction in supine x 10 seconds. She would benefit from continued PT working towards upright positioning and dynamic stabilization Physical Therapy Plan Frequency and Duration Frequency of Treatment 1 xm per week Duration of treatment (weeks) 12 Plan of Care Start Date 05/12/24 Plan of Care End Date 07/28/24 Therapeutic Interventions Therapeutic Interventions Home Exercise Program, Neuromuscular Re-education, Self-Care/Home Management, Therapeutic Exercises Modalities Biofeedback Next Visit Focus/Plan Next Note Type Treatment Note Next Visit Plan EMG biofeedback for pelvic floor strengthening, NMES for improving sensation of pelvic floor contractions, core strengthening work on sit-stand and standing squats Plan of Care Dates Plan of Care Start Date 05/12/24 Plan of Care End Date 07/28/24 Electronically Signed by: Ekta Mckeon, PT 05/12/24 1640 If you are in agreement with this Plan of Care, please return a signed and dated copy. I have reviewed this Plan of Care and certify that the skilled therapy services above are required to meet the patient?s needs. Physician Signature Date Printed Name and Credentials Clinical Instructor Signature Printed Name and Credentials
--- NOTE | 2024-05-20 12:57 | PT.OTN ---
Current Diagnoses Mixed incontinence (05/20/24) Cystocele, unspecified (05/20/24) Rectocele (05/20/24) Pelvic muscle wasting (05/20/24) Pelvic and perineal pain (05/20/24) Physical Therapy Treatment Note PT-OP-A Visit Information Start: 09/10/23 09:47 Freq: Status: Active Protocol: Document 05/20/24 08:15 [facility] (Rec: 05/20/24 12:56 [facility] [id number]) Out-Patient Physical Therapy Visit Information Visit Information Visit Type Treatment Note Visit Start Time 08:15 Visit Stop Time 09:00 Visit Number 8 PT-OP-B Current Condition Start: 09/10/23 09:47 Freq: Status: Active Protocol: Document 09/10/23 09:48 [facility] (Rec: 09/10/23 10:35 [facility] [id number]) Current Condition History of Current Condition Onset Date 6-7 years ago Current Complaints urinary stress incontinence History of Current Condition kids are 13 and 11 and it started 6-7 years ago with losing urine with a strong sneeze, 2.5 years ago she did a little pelvic floor PT but it did not work for her. SHe has a C section and then a and she tore badly with her second baby. She does feel that she gets rashes under her scar. She does describe bad cramps and chronic yeast infections. She gets these every 3-4 months. 1 UTI 3 years ago. She has mild leakage here and there but with sneezing she will feel it just flow. She has to wear a pad all the time. She feels she voids all the way. SHe is waking up 1 xm per night void. SHe has a lot of coffee throughout the day. LImits water. She does have occasional fecal soiling but she was on a medication for PCOS was causing diarhea. Treatment Goals Patient/Caregiver Goals pt wants to see how much she can do with strengthening to avoid surgery. PT-OP-C Subjective Start: 09/10/23 09:47 Freq: Status: Active Protocol: Document 05/20/24 08:15 [facility] (Rec: 05/20/24 08:58 [facility] [id number]) OP-PT Subjective Patient Comments Patient Comments pt feels like she can feel a little strength now PT-OP-I Pelvic Floor Start: 09/10/23 09:47 Freq: Status: Active Protocol: Document 09/10/23 09:45 [facility] (Rec: 09/10/23 17:20 [facility] [id number]) Pelvic Floor Assessment Urine Pelvic Floor Surgery No Other Urinary Symptoms urinary stress incontinence Leakage Size Large Leakage Cause Cough,Exercise,Lifting,Sneeze Leaks Per Day 5 Nocturia 1 Pads Used In 24 Hours 3 Urine Pad Type Maxi Pad Pelvic Clock Pelvic Clock 12-3 Atrophy Pelvic Clock 3-6 Atrophy Pelvic Clock 6-9 Atrophy Pelvic Clock 9-12 Atrophy Prolapse Cystocele Grade 2 Urethrocele Grade 2 Contraction Ability Voluntary Contraction Weak Voluntary Relaxation Weak Manual Muscle Testing Left 2 Manual Muscle Testing Right 2 Manual Muscle Testing Anterior 1 Manual Muscle Testing Posterior 2 Muscle Endurance (Seconds) 3 Comments Pelvic Floor Comments with exam Paige presents with a large amount of stool in her rectum. She is not aware of the stool and we talked about how this can press into her bladder increasing incontinence symptoms PT-OP-M Strength Start: 09/10/23 09:47 Freq: Status: Active Protocol: Document 09/10/23 09:45 [facility] (Rec: 09/12/23 13:59 [facility] [id number]) Trunk Strength Trunk Manual Muscle Testing Flexion 3 Fair Core Stabilization Decreased TA activation in supine PT-OP-Q Treatments Start: 09/10/23 09:47 Freq: Status: Active Protocol: Document 05/20/24 08:15 [facility] (Rec: 05/20/24 08:58 [facility] [id number]) Therapeutic Exercises Supine Exercises TA march Reps/Minutes x 10 pelvic floor long holds Supine Exercise Name baselineat rest is 0 Reps/Minutes x 10 reps holding 10 sec and relaxing 10 sec Comments 4.7 and max of 14 supine ball squeeze with pelvic floor Reps/Minutes x 10 reps holding 5 seconds and resting 10 seconds Comments 8.7 average and 12.8 max Other Exercises quadruped TA Reps/Minutes 10 reps PT-OP-T Assessment and Plan Start: 09/10/23 09:47 Freq: Status: Active Protocol: Document 05/20/24 08:15 [facility] (Rec: 05/20/24 12:56 [facility] [id number]) Physical Therapy Assessment Assessment Summary Assessment Paige is showing good improvement of endurance holds and has a better pelvic floor contraction.. She brought up her scar and feels it inhibits her from being able to tone her abdominal muscles. I did talk to her about scar tissue release. i also started her with supine marches as well as quadruped TA facilitation to activate the lower abdominal wall. She tolerated this well Physical Therapy Plan Frequency and Duration Frequency of Treatment 1 xm per week Duration of treatment (weeks) 12 Plan of Care Start Date 05/12/24 Plan of Care End Date 07/28/24 Therapeutic Interventions Therapeutic Interventions Home Exercise Program, Neuromuscular Re-education, Self-Care/Home Management, Therapeutic Exercises Modalities Biofeedback Next Visit Focus/Plan Next Note Type Treatment Note Next Visit Plan EMG biofeedback for pelvic floor endurance holds, possibly scar tissue release over the scar, continue with TA stabilization and core progression
--- NOTE | 2024-07-09 10:33 | PT.OTN ---
Current Diagnoses Mixed incontinence (07/09/24) Cystocele, unspecified (07/09/24) Rectocele (07/09/24) Pelvic muscle wasting (07/09/24) Pelvic and perineal pain (07/09/24) Physical Therapy Treatment Note PT-OP-A Visit Information Start: 09/10/23 09:47 Freq: Status: Active Protocol: Document 07/09/24 09:42 [facility] (Rec: 07/09/24 10:33 [facility] [id number]) Out-Patient Physical Therapy Visit Information Visit Information Visit Type Treatment Note Visit Start Time 09:45 Visit Stop Time 10:30 Visit Number 9 PT-OP-B Current Condition Start: 09/10/23 09:47 Freq: Status: Active Protocol: Document 09/10/23 09:48 [facility] (Rec: 09/10/23 10:35 [facility] [id number]) Current Condition History of Current Condition Onset Date 6-7 years ago Current Complaints urinary stress incontinence History of Current Condition kids are 13 and 11 and it started 6-7 years ago with losing urine with a strong sneeze, 2.5 years ago she did a little pelvic floor PT but it did not work for her. SHe has a C section and then a and she tore badly with her second baby. She does feel that she gets rashes under her scar. She does describe bad cramps and chronic yeast infections. She gets these every 3-4 months. 1 UTI 3 years ago. She has mild leakage here and there but with sneezing she will feel it just flow. She has to wear a pad all the time. She feels she voids all the way. SHe is waking up 1 xm per night void. SHe has a lot of coffee throughout the day. LImits water. She does have occasional fecal soiling but she was on a medication for PCOS was causing diarhea. Treatment Goals Patient/Caregiver Goals pt wants to see how much she can do with strengthening to avoid surgery. PT-OP-C Subjective Start: 09/10/23 09:47 Freq: Status: Active Protocol: Document 07/09/24 09:42 [facility] (Rec: 07/09/24 10:33 [facility] [id number]) OP-PT Subjective Patient Comments Patient Comments Paige notes she is not having a lot of leakage. She doesn' t feel that she could go without wearing a pad. IF she has coffee in the evening then it causes her to leak. She is only having coffee in the am. She has been trying to work on her c section scar PT-OP-I Pelvic Floor Start: 09/10/23 09:47 Freq: Status: Active Protocol: Document 09/10/23 09:45 [facility] (Rec: 09/10/23 17:20 [facility] [id number]) Pelvic Floor Assessment Urine Pelvic Floor Surgery No Other Urinary Symptoms urinary stress incontinence Leakage Size Large Leakage Cause Cough,Exercise,Lifting,Sneeze Leaks Per Day 5 Nocturia 1 Pads Used In 24 Hours 3 Urine Pad Type Maxi Pad Pelvic Clock Pelvic Clock 12-3 Atrophy Pelvic Clock 3-6 Atrophy Pelvic Clock 6-9 Atrophy Pelvic Clock 9-12 Atrophy Prolapse Cystocele Grade 2 Urethrocele Grade 2 Contraction Ability Voluntary Contraction Weak Voluntary Relaxation Weak Manual Muscle Testing Left 2 Manual Muscle Testing Right 2 Manual Muscle Testing Anterior 1 Manual Muscle Testing Posterior 2 Muscle Endurance (Seconds) 3 Comments Pelvic Floor Comments with exam Paige presents with a large amount of stool in her rectum. She is not aware of the stool and we talked about how this can press into her bladder increasing incontinence symptoms PT-OP-M Strength Start: 09/10/23 09:47 Freq: Status: Active Protocol: Document 09/10/23 09:45 [facility] (Rec: 09/12/23 13:59 [facility] [id number]) Trunk Strength Trunk Manual Muscle Testing Flexion 3 Fair Core Stabilization Decreased TA activation in supine PT-OP-Q Treatments Start: 09/10/23 09:47 Freq: Status: Active Protocol: Document 07/09/24 09:42 [facility] (Rec: 07/09/24 10:33 [facility] [id number]) Therapeutic Exercises Supine Exercises TA with SLR Reps/Minutes 5- 10 reps each side TA august Supine Exercise Name improved TA facilitation Reps/Minutes x 10 pelvic floor long holds Supine Exercise Name baseline at rest is 0 Reps/Minutes x 10 reps holding 10 sec and relaxing 10 sec supine ball squeeze with pelvic floor Reps/Minutes x 10 reps holding 5 seconds and resting 10 seconds Comments 7.5 average and max of 13.7 Sidelying Exercises sidelying hip abduction Reps/Minutes x 10 reps clam shells Reps/Minutes x 10 each side Manual Therapy Treatment Soft Tissue Mobilization MFR of the suprapubic fascia Comments worked over the c section scar and suprapubic fascia PT-OP-T Assessment and Plan Start: 09/10/23 09:47 Freq: Status: Active Protocol: Document 07/09/24 09:42 [facility] (Rec: 07/09/24 10:33 [facility] [id number]) Physical Therapy Assessment Goals 3 Impairment Urinary stress incontinence that is occuring 4-5 times per day and Paige always wears a pad for protection [facility] Goal (LTG) Paige reports a overall reduction in urinary leakage and is no longer having to wear a daily maxi pad pt is still wearing a maxi pad just in case however is not noting the same degree of leakage she was experiencing, she has reduced her coffee intake which is also helping to reduce leakage LTG Duration 12 weeks 2 Impairment Decreased pelvic floor endurance Short Term Goal (STG) Paige is able to sustain a pelvic floor contraction x 10 seconds in supine Endurance holds have been improving and Paige is now able to hold x 10 seconds in supine STG Duration 5 weeks [facility] Goal (LTG) Paige is able to sustain a pelvic floor contraction in standing x 5 seconds goal not yet met LTG Duration 12 weeks 1 Impairment Weakness of the pelvic floor with MMT of 1/5 for anterior and left lateral kohler and 2/5 for posterior and right lateral wall Short Term Goal (STG) Paige is educated on a pelvic floor strengthening program Paige has been educated on a home pelvic floor strengthening program STG Duration 4 weeks Auto Job Estimator Goal (LTG) Paige has improved MMT for pelvic floor muscle strength by at least 1 muscle grade good progress LTG Duration 12 weeks Assessment Summary Assessment Paige is now noting decreased leakage and she can tell if she has a afternoon coffee that it affects her bladder. She has cut back on caffiene and fees this has helped her. She has also been working on scar tissue mobility over her c section scar and is better able to facilitate contraction of her Transverse abdominal muscles now. Paige would benefit from continued PT Physical Therapy Plan Frequency and Duration Frequency of Treatment Every Other Week Duration of treatment (weeks) 12 Plan of Care Start Date 07/09/24 Plan of Care End Date 10/01/24 Next Visit Focus/Plan Next Note Type Treatment Note Next Visit Plan EMG biofeedback for pelvic floor endurance holds, possibly scar tissue release over the scar, continue with TA stabilization and core progression
--- NOTE | 2024-07-09 10:33 | PT.OPPOC ---
Physical, Occupational & Speech Therapy At [facility] Current Diagnoses Mixed incontinence (07/09/24) Cystocele, unspecified (07/09/24) Rectocele (07/09/24) Pelvic muscle wasting (07/09/24) Pelvic and perineal pain (07/09/24) Visit Care Team Role Provider Type ARIK Vides Family Provider Non-Staff Primary Care Provider Specialty: Nursing Address: [address], [address], [place], [address] Email: ARIK Currie Attending Provider Non-Staff Referring Provider Specialty: Nursing Address: [facility], [address], [place], [address] Email: Plan Of Care PT-OP-B Current Condition Start: 09/10/23 09:47 Freq: Status: Active Protocol: Document 09/10/23 09:48 [facility] (Rec: 09/10/23 10:35 [facility] [id number]) Current Condition History of Current Condition Onset Date 6-7 years ago Current Complaints urinary stress incontinence History of Current Condition kids are 13 and 11 and it started 6-7 years ago with losing urine with a strong sneeze, 2.5 years ago she did a little pelvic floor PT but it did not work for her. SHe has a C section and then a and she tore badly with her second baby. She does feel that she gets rashes under her scar. She does describe bad cramps and chronic yeast infections. She gets these every 3-4 months. 1 UTI 3 years ago. She has mild leakage here and there but with sneezing she will feel it just flow. She has to wear a pad all the time. She feels she voids all the way. SHe is waking up 1 xm per night void. SHe has a lot of coffee throughout the day. LImits water. She does have occasional fecal soiling but she was on a medication for PCOS was causing diarhea. Treatment Goals Patient/Caregiver Goals pt wants to see how much she can do with strengthening to avoid surgery. PT-OP-T Assessment and Plan Start: 09/10/23 09:47 Freq: Status: Active Protocol: Document 07/09/24 09:42 [facility] (Rec: 07/09/24 10:33 [facility] [id number]) Physical Therapy Assessment Goals 3 Impairment Urinary stress incontinence that is occuring 4-5 times per day and Paige always wears a pad for protection Computational Mathematician Goal (LTG) Paige reports a overall reduction in urinary leakage and is no longer having to wear a daily maxi pad pt is still wearing a maxi pad just in case however is not noting the same degree of leakage she was experiencing, she has reduced her coffee intake which is also helping to reduce leakage LTG Duration 12 weeks 2 Impairment Decreased pelvic floor endurance Short Term Goal (STG) Paige is able to sustain a pelvic floor contraction x 10 seconds in supine Endurance holds have been improving and Paige is now able to hold x 10 seconds in supine STG Duration 5 weeks Jail Goal (LTG) Paige is able to sustain a pelvic floor contraction in standing x 5 seconds goal not yet met LTG Duration 12 weeks 1 Impairment Weakness of the pelvic floor with MMT of 1/5 for anterior and left lateral kohler and 2/5 for posterior and right lateral wall Short Term Goal (STG) Paige is educated on a pelvic floor strengthening program Paige has been educated on a home pelvic floor strengthening program STG Duration 4 weeks Computational Mathematician Goal (LTG) Paige has improved MMT for pelvic floor muscle strength by at least 1 muscle grade good progress LTG Duration 12 weeks Assessment Summary Assessment Paige is now noting decreased leakage and she can tell if she has a afternoon coffee that it affects her bladder. She has cut back on caffeine and fees this has helped her. She has also been working on scar tissue mobility over her c section scar and is better able to facilitate contraction of her Transverse abdominal muscles now. Paige would benefit from continued PT Physical Therapy Plan Frequency and Duration Frequency of Treatment Every Other Week Duration of treatment (weeks) 12 Plan of Care Start Date 07/09/24 Plan of Care End Date 10/01/24 Next Visit Focus/Plan Next Note Type Treatment Note Next Visit Plan EMG biofeedback for pelvic floor endurance holds, possibly scar tissue release over the scar, continue with TA stabilization and core progression Plan of Care Dates Plan of Care Start Date 07/09/24 Plan of Care End Date 10/01/24 Electronically Signed by: Ekta Mckeon, PT 07/09/24 1033 If you are in agreement with this Plan of Care, please return a signed and dated copy. I have reviewed this Plan of Care and certify that the skilled therapy services above are required to meet the patient?s needs. Physician Signature Date Printed Name and Credentials Clinical Instructor Signature Printed Name and Credentials
--- NOTE | 2024-09-23 16:00 | PT.OTN ---
Current Diagnoses Mixed incontinence (09/23/24) Cystocele, unspecified (09/23/24) Rectocele (09/23/24) Pelvic muscle wasting (09/23/24) Pelvic and perineal pain (09/23/24) Physical Therapy Treatment Note PT-OP-A Visit Information Start: 09/10/23 09:47 Freq: Status: Active Protocol: Document 09/23/24 08:11 [facility] (Rec: 09/23/24 09:00 [facility] [id number]) Out-Patient Physical Therapy Visit Information Visit Information Visit Type Progress Note Visit Start Time 08:15 Visit Stop Time 09:00 Visit Number 10 Evaluation Information Evaluation Date 09/10/23 PT-OP-B Current Condition Start: 09/10/23 09:47 Freq: Status: Active Protocol: Document 09/10/23 09:48 [facility] (Rec: 09/10/23 10:35 [facility] [id number]) Current Condition History of Current Condition Onset Date 6-7 years ago Current Complaints urinary stress incontinence History of Current Condition kids are 13 and 11 and it started 6-7 years ago with losing urine with a strong sneeze, 2.5 years ago she did a little pelvic floor PT but it did not work for her. SHe has a C section and then a and she tore badly with her second baby. She does feel that she gets rashes under her scar. She does describe bad cramps and chronic yeast infections. She gets these every 3-4 months. 1 UTI 3 years ago. She has mild leakage here and there but with sneezing she will feel it just flow. She has to wear a pad all the time. She feels she voids all the way. SHe is waking up 1 xm per night void. SHe has a lot of coffee throughout the day. LImits water. She does have occasional fecal soiling but she was on a medication for PCOS was causing diarhea. Treatment Goals Patient/Caregiver Goals pt wants to see how much she can do with strengthening to avoid surgery. PT-OP-C Subjective Start: 09/10/23 09:47 Freq: Status: Active Protocol: Document 09/23/24 08:11 [facility] (Rec: 09/23/24 09:00 [facility] [id number]) OP-PT Subjective Patient Comments Patient Comments pt notes she has been moving and hasn't been able to do her exercises the past 6 weeks. Pt notes overall she is having a lot less leakage. She notes when it happens most is when there will be a random time when she sneezes. She reports she has decreased the amount of coffee she is drinking and she can tell this makes a really big difference . She would like to see her OBGYN to discuss possible surgical options as well Patient Reported Progress Improving PT-OP-I Pelvic Floor Start: 09/10/23 09:47 Freq: Status: Active Protocol: Document 09/10/23 09:45 [facility] (Rec: 09/10/23 17:20 [facility] [id number]) Pelvic Floor Assessment Urine Pelvic Floor Surgery No Other Urinary Symptoms urinary stress incontinence Leakage Size Large Leakage Cause Cough,Exercise,Lifting,Sneeze Leaks Per Day 5 Nocturia 1 Pads Used In 24 Hours 3 Urine Pad Type Maxi Pad Pelvic Clock Pelvic Clock 12-3 Atrophy Pelvic Clock 3-6 Atrophy Pelvic Clock 6-9 Atrophy Pelvic Clock 9-12 Atrophy Prolapse Cystocele Grade 2 Urethrocele Grade 2 Contraction Ability Voluntary Contraction Weak Voluntary Relaxation Weak Manual Muscle Testing Left 2 Manual Muscle Testing Right 2 Manual Muscle Testing Anterior 1 Manual Muscle Testing Posterior 2 Muscle Endurance (Seconds) 3 Comments Pelvic Floor Comments with exam Paige presents with a large amount of stool in her rectum. She is not aware of the stool and we talked about how this can press into her bladder increasing incontinence symptoms PT-OP-M Strength Start: 09/10/23 09:47 Freq: Status: Active Protocol: Document 09/10/23 09:45 [facility] (Rec: 09/12/23 13:59 [facility] [id number]) Trunk Strength Trunk Manual Muscle Testing Flexion 3 Fair Core Stabilization Decreased TA activation in supine PT-OP-Q Treatments Start: 09/10/23 09:47 Freq: Status: Active Protocol: Document 09/23/24 08:11 [facility] (Rec: 09/23/24 09:00 [facility] [id number]) Therapeutic Exercises Supine Exercises TA with SLR Reps/Minutes 10 reps TA march Reps/Minutes x 10reps quick contractions Reps/Minutes 10 reps pelvic floor long holds Reps/Minutes x 10 reps holding 10 sec and relaxing 10 sec Comments 4.8 and max of 26.1 supine ball squeeze with pelvic floor Comments 7.4 and max of 20 Sidelying Exercises clam shells Reps/Minutes 2 x 10 each side Self-Care/Home Management Treatment Education Other Education pt was educated on bladder supports of poise impressas and uresta PT-OP-T Assessment and Plan Start: 09/10/23 09:47 Freq: Status: Active Protocol: Document 09/23/24 08:11 [facility] (Rec: 09/23/24 09:00 [facility] [id number]) Physical Therapy Assessment Goals 3 Impairment Urinary stress incontinence that is occuring 4-5 times per day and Paige always wears a pad for protection [employer] Scout Goal (LTG) Paige reports a overall reduction in urinary leakage and is no longer having to wear a daily maxi pad pt is still wearing a maxi pad just in case however is not noting the same degree of leakage she was experiencing, she has reduced her coffee intake which is also helping to reduce leakage LTG Duration 12 weeks 2 Impairment Decreased pelvic floor endurance Short Term Goal (STG) Paige is able to sustain a pelvic floor contraction x 10 seconds in supine Endurance holds have been improving and Paige is now able to hold x 10 seconds in supine STG Duration 5 weeks Alf Goal (LTG) Paige is able to sustain a pelvic floor contraction in standing x 5 seconds goal not yet met LTG Duration 12 weeks 1 Impairment Weakness of the pelvic floor with MMT of 1/5 for anterior and left lateral kohler and 2/5 for posterior and right lateral wall Short Term Goal (STG) Paige is educated on a pelvic floor strengthening program Paige has been educated on a home pelvic floor strengthening program STG Duration 4 weeks Alf Goal (LTG) Paige has improved MMT for pelvic floor muscle strength by at least 1 muscle grade good progress LTG Duration 12 weeks Assessment Summary Assessment Paige reports overall she is experiencing less leakage but there are times when she will be suprised that she will leak . She admits not always doing her exercises. She would like to consult with OBGYN for possible surgery options. Paige would like to be able to check in with PT one time per month to ensure HEP and to progress exercises. Physical Therapy Plan Frequency and Duration Frequency of Treatment Every Other Week Duration of treatment (weeks) 12 Plan of Care Start Date 09/23/24 Plan of Care End Date 12/16/24 Therapeutic Interventions Therapeutic Interventions Home Exercise Program, Neuromuscular Re-education, Self-Care/Home Management, Therapeutic Exercises Modalities Biofeedback Next Visit Focus/Plan Next Note Type Treatment Note Next Visit Plan EMG biofeedback for pelvic floor endurance holds, possibly scar tissue release over the scar, continue with TA stabilization and core progression
--- NOTE | 2024-09-23 16:00 | PT.OPPOC ---
Physical, Occupational & Speech Therapy At [facility] Current Diagnoses Mixed incontinence (09/23/24) Cystocele, unspecified (09/23/24) Rectocele (09/23/24) Pelvic muscle wasting (09/23/24) Pelvic and perineal pain (09/23/24) Visit Care Team Role Provider Type ARIK Vides Family Provider Non-Staff Primary Care Provider Specialty: Nursing Address: [address], [address], [place], [address] Email: ARIK Currie Attending Provider Non-Staff Referring Provider Specialty: Nursing Address: [address], [address], [place], [address] Email: Plan Of Care PT-OP-B Current Condition Start: 09/10/23 09:47 Freq: Status: Active Protocol: Document 09/10/23 09:48 [facility] (Rec: 09/10/23 10:35 [facility] [id number]) Current Condition History of Current Condition Onset Date 6-7 years ago Current Complaints urinary stress incontinence History of Current Condition kids are 13 and 11 and it started 6-7 years ago with losing urine with a strong sneeze, 2.5 years ago she did a little pelvic floor PT but it did not work for her. SHe has a C section and then a and she tore badly with her second baby. She does feel that she gets rashes under her scar. She does describe bad cramps and chronic yeast infections. She gets these every 3-4 months. 1 UTI 3 years ago. She has mild leakage here and there but with sneezing she will feel it just flow. She has to wear a pad all the time. She feels she voids all the way. SHe is waking up 1 xm per night void. SHe has a lot of coffee throughout the day. LImits water. She does have occasional fecal soiling but she was on a medication for PCOS was causing diarrhea. Treatment Goals Patient/Caregiver Goals pt wants to see how much she can do with strengthening to avoid surgery. PT-OP-T Assessment and Plan Start: 09/10/23 09:47 Freq: Status: Active Protocol: Document 09/23/24 08:11 [facility] (Rec: 09/23/24 09:00 [facility] [id number]) Physical Therapy Assessment Goals 3 Impairment Urinary stress incontinence that is occurring 4-5 times per day and Paige always wears a pad for protection Installation Coordinator Goal (LTG) Paige reports a overall reduction in urinary leakage and is no longer having to wear a daily maxi pad pt is still wearing a maxi pad just in case however is not noting the same degree of leakage she was experiencing, she has reduced her coffee intake which is also helping to reduce leakage LTG Duration 12 weeks 2 Impairment Decreased pelvic floor endurance Short Term Goal (STG) Paige is able to sustain a pelvic floor contraction x 10 seconds in supine Endurance holds have been improving and Paige is now able to hold x 10 seconds in supine STG Duration 5 weeks Installation Coordinator Goal (LTG) Paige is able to sustain a pelvic floor contraction in standing x 5 seconds goal not yet met LTG Duration 12 weeks 1 Impairment Weakness of the pelvic floor with MMT of 1/5 for anterior and left lateral kohler and 2/5 for posterior and right lateral wall Short Term Goal (STG) Paige is educated on a pelvic floor strengthening program Paige has been educated on a home pelvic floor strengthening program STG Duration 4 weeks Correction Goal (LTG) Paige has improved MMT for pelvic floor muscle strength by at least 1 muscle grade good progress LTG Duration 12 weeks Assessment Summary Assessment Paige reports overall she is experiencing less leakage but there are times when she will be surprised that she will leak . She admits not always doing her exercises. She would like to consult with OBGYN for possible surgery options. Paige would like to be able to check in with PT one time per month to ensure HEP and to progress exercises. Physical Therapy Plan Frequency and Duration Frequency of Treatment Every Other Week Duration of treatment (weeks) 12 Plan of Care Start Date 09/23/24 Plan of Care End Date 12/16/24 Therapeutic Interventions Therapeutic Interventions Home Exercise Program, Neuromuscular Re-education, Self-Care/Home Management, Therapeutic Exercises Modalities Biofeedback Next Visit Focus/Plan Next Note Type Treatment Note Next Visit Plan EMG biofeedback for pelvic floor endurance holds, possibly scar tissue release over the scar, continue with TA stabilization and core progression Plan of Care Dates Plan of Care Start Date 09/23/24 Plan of Care End Date 12/16/24 Electronically Signed by: Ekta Mckeon, PT 09/24/24 0847 If you are in agreement with this Plan of Care, please return a signed and dated copy. I have reviewed this Plan of Care and certify that the skilled therapy services above are required to meet the patient?s needs. Physician Signature Date Printed Name and Credentials Clinical Instructor Signature Printed Name and Credentials
--- NOTE | 2024-10-29 16:38 | PT.OTN ---
Current Diagnoses Mixed incontinence (10/29/24) Cystocele, unspecified (10/29/24) Rectocele (10/29/24) Pelvic muscle wasting (10/29/24) Pelvic and perineal pain (10/29/24) Physical Therapy Treatment Note PT-OP-A Visit Information Start: 09/10/23 09:47 Freq: Status: Active Protocol: Document 10/29/24 13:05 [facility] (Rec: 10/29/24 13:44 [facility] [id number]) Out-Patient Physical Therapy Visit Information Visit Information Visit Type Treatment Note Visit Start Time 13:05 Visit Stop Time 13:45 Visit Number 11 PT-OP-B Current Condition Start: 09/10/23 09:47 Freq: Status: Active Protocol: Document 09/10/23 09:48 [facility] (Rec: 09/10/23 10:35 [facility] [id number]) Current Condition History of Current Condition Onset Date 6-7 years ago Current Complaints urinary stress incontinence History of Current Condition kids are 13 and 11 and it started 6-7 years ago with losing urine with a strong sneeze, 2.5 years ago she did a little pelvic floor PT but it did not work for her. SHe has a C section and then a and she tore badly with her second baby. She does feel that she gets rashes under her scar. She does describe bad cramps and chronic yeast infections. She gets these every 3-4 months. 1 UTI 3 years ago. She has mild leakage here and there but with sneezing she will feel it just flow. She has to wear a pad all the time. She feels she voids all the way. SHe is waking up 1 xm per night void. SHe has a lot of coffee throughout the day. LImits water. She does have occasional fecal soiling but she was on a medication for PCOS was causing diarhea. Treatment Goals Patient/Caregiver Goals pt wants to see how much she can do with strengthening to avoid surgery. 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 SHe feels less leakage overall but she does wear a pad just in case PT-OP-I Pelvic Floor Start: 09/10/23 09:47 Freq: Status: Active Protocol: Document 09/10/23 09:45 [facility] (Rec: 09/10/23 17:20 [facility] [id number]) Pelvic Floor Assessment Urine Pelvic Floor Surgery No Other Urinary Symptoms urinary stress incontinence Leakage Size Large Leakage Cause Cough,Exercise,Lifting,Sneeze Leaks Per Day 5 Nocturia 1 Pads Used In 24 Hours 3 Urine Pad Type Maxi Pad Pelvic Clock Pelvic Clock 12-3 Atrophy Pelvic Clock 3-6 Atrophy Pelvic Clock 6-9 Atrophy Pelvic Clock 9-12 Atrophy Prolapse Cystocele Grade 2 Urethrocele Grade 2 Contraction Ability Voluntary Contraction Weak Voluntary Relaxation Weak Manual Muscle Testing Left 2 Manual Muscle Testing Right 2 Manual Muscle Testing Anterior 1 Manual Muscle Testing Posterior 2 Muscle Endurance (Seconds) 3 Comments Pelvic Floor Comments with exam Paige presents with a large amount of stool in her rectum. She is not aware of the stool and we talked about how this can press into her bladder increasing incontinence symptoms PT-OP-M Strength Start: 09/10/23 09:47 Freq: Status: Active Protocol: Document 09/10/23 09:45 [facility] (Rec: 09/12/23 13:59 [facility] [id number]) Trunk Strength Trunk Manual Muscle Testing Flexion 3 Fair Core Stabilization Decreased TA activation in supine PT-OP-Q Treatments Start: 09/10/23 09:47 Freq: Status: Active Protocol: Document 10/29/24 13:05 [facility] (Rec: 10/29/24 13:44 [facility] [id number]) Therapeutic Exercises Supine Exercises TA with SLR Reps/Minutes 10 reps TA march Reps/Minutes x 10reps quick contractions Side bilateral Reps/Minutes with brushing your teeth pelvic floor long holds Reps/Minutes x 10 reps holding 10 sec and relaxing 10 sec Comments 4.8 and max of 26.1 supine ball squeeze with pelvic floor Reps/Minutes 5 sec hold x 10 reps Sidelying Exercises sidelying hip abduction Reps/Minutes x 10 reps clam shells Reps/Minutes 2 x 10 each side Self-Care/Home Management Treatment Education Patient Education Home Exercise Program Activities Self-Care/Home Management Activities time was spent reviewing HEP and I printed out new exercises for Paige We discussed surgical options and a review of bladder irritants was performed. PT-OP-T Assessment and Plan Start: 09/10/23 09:47 Freq: Status: Active Protocol: Document 10/29/24 13:05 [facility] (Rec: 10/29/24 13:51 [facility] [id number]) Physical Therapy Assessment Goals 3 Impairment Urinary stress incontinence that is occuring 4-5 times per day and Paige always wears a pad for protection Group Home Goal (LTG) Paige reports a overall reduction in urinary leakage and is no longer having to wear a daily maxi pad pt is still wearing a maxi pad just in case however is not noting the same degree of leakage she was experiencing, she has reduced her coffee intake which is also helping to reduce leakage LTG Duration 12 weeks 2 Impairment Decreased pelvic floor endurance Short Term Goal (STG) Paige is able to sustain a pelvic floor contraction x 10 seconds in supine Endurance holds have been improving and Paige is now able to hold x 10 seconds in supine STG Duration 5 weeks Group Home Goal (LTG) Paige is able to sustain a pelvic floor contraction in standing x 5 seconds goal not yet met LTG Duration 12 weeks 1 Impairment Weakness of the pelvic floor with MMT of 1/5 for anterior and left lateral kohler and 2/5 for posterior and right lateral wall Short Term Goal (STG) Paige is educated on a pelvic floor strengthening program Paige has been educated on a home pelvic floor strengthening program STG Duration 4 weeks Acute Care Clinical Nurse Specialist Goal (LTG) Paige has improved MMT for pelvic floor muscle strength by at least 1 muscle grade good progress LTG Duration 12 weeks Assessment Summary Assessment Paige was here for her last visit in PT today. She is independent with her HEP and is feeling that overall things are much better and leakage has overall decreased. She is still wearing a pad just in case and every now and then will experience some leakage. She reports that coffee is a trigger and if she has a afternoon coffee she will often notice leakage. At this point she will be discharged from PT but she would like a follow up with a urogynacologist looking into surgical options for the future Physical Therapy Plan Discharge Physical Therapy Discharge Reasons Plateau in Progress
== END 2024-10-30 13:50 | disposition home or self-care (01) ==
LOC: PHYS 13:00
PROVIDERS: Family Provider Nurse Practitioner; PCP Nurse Practitioner; Referring Provider Nurse Practitioner; Visit Provider Nurse Practitioner
DX: N39.46 Mixed incontinence (principal); N81.10 Cystocele, unspecified; N81.6 Rectocele; R10.2 Pelvic and perineal pain; N81.84 Pelvic muscle wasting
CPT/HCPCS: 97110; 97112; 97140; 97162; 97535